=== PATIENT | female | born 1950 | race Caucasian/White ===

== ENCOUNTER → 2016-09-12 | Outpatient (CLI) | payer OTHER | LOC: CIMAGING 10:11 | DX: Z12.31 Encounter for screening mammogram for malignant neoplasm of breast (principal) | CPT/HCPCS: G0202 ==

== ENCOUNTER → 2017-08-25 | Outpatient (CLI) | payer OTHER, MEDICARE | LOC: BMCIMAGING 13:04 | PROVIDERS: ATTEND Obstetrics & Gynecology | DX: Z13.820 Encounter for screening for osteoporosis (principal); M85.89 Other specified disorders of bone density and structure, multiple sites; N95.0 Postmenopausal bleeding; D25.9 Leiomyoma of uterus, unspecified; R93.8 Abnormal findings on diagnostic imaging of other specified body structures; N83.202 Unspecified ovarian cyst, left side; N94.89 Other specified conditions associated with female genital organs and menstrual cycle; Z79.890 Hormone replacement therapy; Z79.899 Other long term (current) drug therapy; Z87.42 Personal history of other diseases of the female genital tract; Z78.0 Asymptomatic menopausal state ==

== ENCOUNTER → 2018-01-16 | Outpatient (CLI) | payer OTHER, MEDICARE | LOC: CIMAGING 15:03 | PROVIDERS: ATTEND Obstetrics & Gynecology | DX: D25.9 Leiomyoma of uterus, unspecified (principal); N85.8 Other specified noninflammatory disorders of uterus; I86.2 Pelvic varices | CPT/HCPCS: 76856-PO ==

== ENCOUNTER → 2018-06-23 | Outpatient (CLI) | payer OTHER, MEDICARE | LOC: CIMAGING 13:32 | PROVIDERS: ATTEND Obstetrics & Gynecology | DX: R92.0 Mammographic microcalcification found on diagnostic imaging of breast (principal) ==

== ENCOUNTER 2018-07-28 09:32 | Inpatient (IN) | payer OTHER, MEDICARE ==
[2018-07-28] MEDS ORDERED: ACETAMINOPHEN 500 MG TAB PO ONE (09:46)
[2018-07-28] MEDS ORDERED: ceFAZolin 2 GM/DEXTROSE 100 ML IV ONE (09:46)
[2018-07-28] MEDS ORDERED: GABAPENTIN 300 MG CAP PO ONE (09:46)
[2018-07-28] MEDS ORDERED: morphINE SR 15 MG TAB PO ONE (09:46)
[2018-07-28] MEDS ORDERED: LR 1,000 ML IV ONE (09:48)
[2018-07-28] MEDS ORDERED: LIDOCAINE 1% 2 ML INJ ONE (10:24)
[2018-07-28] MEDS ORDERED: SURGIFLO MATRIX KIT WITH THROMBIN 8 ML TP ONE (10:51)
[2018-07-28] MEDS ORDERED: BUPIVACAINE/EPI 0.25% 30 ML SDV ONE (10:51)
[2018-07-28] MEDS ORDERED: BACITRACIN 50,000 UNITS/10 ML SYR IRR ONE (10:51)
[2018-07-28] MEDS ORDERED: CHLORHEXIDINE GLUC HIBICLENS 118 ML BTL TP ONE (10:51)
[2018-07-28] MEDS ORDERED: THROMBIN (BOVINE) 20,000 UNIT VIAL TP ONE (10:51)
--- NOTE | 2018-07-28 11:03 | PDHPUP ---
History & Physical Update H&P update statement: This history and physical update is based on an assessment of the patient which was completed after admission or registration (within 24 hours), but prior to the surgery/procedure. H&P update: H&P reviewed & patient examined, no change in patient's condition since H&P completed (Consents signed and site marked. All questions signed.)
[2018-07-28] MEDS ORDERED: MIDAZOLAM 2 MG/2 ML VIAL IVP ONE (11:27)
--- NOTE | 2018-07-28 11:28 | PDANEPAE ---
ANE Past Medical History - Cardiovascular History Hx Hypertension: No Hx Arrhythmias: Yes Hx Chest Pain: No Hx Coronary Artery / Peripheral Vascular Disease: No Hx CHF / Valvular Disease: No Hx Palpitations: No Cardiovascular History Comment: heart murmur - Pulmonary History Hx COPD: No Hx Asthma/Reactive Airway Disease: No Hx Recent Upper Respiratory Infection: No Hx Oxygen in Use at Home: No Hx Sleep Apnea: No Sleep Apnea Screening Result - Last Documented: Negative - Neurologic History Hx Cerebrovascular Accident: No Hx Seizures: No Hx Dementia: No Neurologic History Comment: hx of prp injections for back pain. numbness and tingling to right leg and foot currently. left leg weakness/ "fatigues easily" . migraines on occasion - Endocrine History Hx Diabetes: No Endocrine History Comment: hypothyroidism - Renal History Hx Renal Disorders: Yes Renal History Comment: stress incontinence - Liver History Hx Hepatic Disorders: No - Neurological & Psychiatric Hx Hx Neurological and Psychiatric Disorders: No - Cancer History Hx Cancer: Yes Cancer History Comment: cancerous mole removed - Congenital Disorder History Hx Congenital Disorders: No - GI History Hx Gastrointestinal Disorders: No - Other Health History Other Health History: wears glasses - Chronic Pain History Chronic Pain: Yes (back, nerve pain) - Surgical History Prior Surgeries: wisdom teeth removed ANE Review of Systems Review of Systems: - Exercise capacity METS (RN): 4 METS ANE Patient History - Allergies Allergies/Adverse Reactions: No Known Allergies Allergy (Verified 07/15/18 12:38) - Home Medications Home Medications: Acetaminophen [Tylenol ES 500 mg (*)] 500 mg PO BID PRN 07/14/18 [Last Taken ] Ascorbic Acid [Vitamin C 500 mg (*)] 1,000 mg PO DAILY 07/14/18 [Last Taken ] Cholecalciferol Vit D3 [Vitamin D3 (*)] 5,000 units PO DAILY 07/14/18 [Last Taken 07/21/18] Estradiol [Estradiol 1 MG (*)] 2 mg PO HS 07/14/18 [Last Taken 07/27/18] Gabapentin [Neurontin 100 MG (*)] 100 - 200 mg PO HS 07/14/18 [Last Taken ] Herbals/Supplements -Info Only 1 ea PO DAILY 07/14/18 [Last Taken Unknown] Levothyroxine [Synthroid 75 mcg (*)] 75 mcg PO DAILY06 07/14/18 [Last Taken 06/16] Liothyronine Sodium [Cytomel 5 mcg (*)] 10 mcg PO DAILY 07/14/18 [Last Taken 06/16] Multivitamins [Multivitamin (*)] 1 each PO DAILY 07/14/18 [Last Taken 07/21/18] Hulett-3 Fatty Acids [Fish Oil 1000 mg (*)] 2,000 mg PO DAILY 07/14/18 [Last Taken 07/21/18] Progesterone, Micronized [Progesterone] 200 mg PO HS 07/14/18 [Last Taken ] Vitamin B Complex [Vitamin B Complex (OTC)] 1 each PO DAILY 07/14/18 [Last Taken 07/21/18] - NPO status NPO Since - Liquids (Date): 07/28/18 NPO Since - Liquids (Time): 06:30 NPO Since - Solids (Date): 07/27/18 NPO Since - Solids (Time): 19:00 - Smoking Hx Smoking Status: Never smoked - Family Anes Hx Family Hx Anesthesia Complications: none ANE Labs/Vital Signs - Vital Signs Blood Pressure: 116/83 Heart Rate: 69 Respiratory Rate: 20 O2 Sat (%): 97 Height: 160.02 cm Weight: 56.699 kg ANE Physical Exam - Airway Neck exam: FROM Mallampati Score: Class 2 Mouth exam: normal dental/mouth exam - Pulmonary Pulmonary: no respiratory distress - Cardiovascular Cardiovascular: regular rate and rhythym - ASA Status ASA Status: II ANE Anesthesia Plan Anesthesia Plan: general endotracheal anesthesia (possible a-line)
[2018-07-28] MEDS ORDERED: PROPOFOL/EMULSION 500 MG/50 ML BOTTLE IV ONE ×2 (11:31→12:34)
[2018-07-28] MEDS ORDERED: BISACODYL 10 MG SUPP PR PRN (11:59)
[2018-07-28] MEDS ORDERED: diphenhydrAMINE 25 MG CAP PO PRN (11:59)
[2018-07-28] MEDS ORDERED: LACTULOSE 20 GM/30 ML UDCUP PO PRN (11:59)
[2018-07-28] MEDS ORDERED: ONDANSETRON 4 MG/2 ML VIAL IVP PRN ×3 (11:59→16:44)
[2018-07-28] MEDS ORDERED: POLYETHYLENE GLYCOL 3350 17 GM PKT PO PRN (11:59)
[2018-07-28] MEDS ORDERED: ONDANSETRON DISINTEGRATING 4 MG TAB PO PRN (11:59)
[2018-07-28] MEDS ORDERED: MAGNESIUM HYDROXIDE 30 ML UDCUP PO PRN (11:59)
[2018-07-28] MEDS ORDERED: NS 1,000 ML IV SCH (12:00)
[2018-07-28] MEDS ORDERED: fentaNYL 100 MCG/2 ML INJ IVP PRN ×2 (13:36→16:44)
[2018-07-28] MEDS ORDERED: ALBUTEROL 3 ML DEYVIAL IH PRN ×2 (13:36→16:44)
[2018-07-28] MEDS ORDERED: NALOXONE HCL 0.4 MG/ML INJ IVP PRN ×2 (13:36→16:44)
[2018-07-28] MEDS ORDERED: PROPOFOL 200 MG/20 ML VIAL ONE (15:32)
--- NOTE | 2018-07-28 16:40 | POSTOPPROG ---
Post Op Note Date of Operation: 07/28/18 Surgeon: Pierce Brennan Ski Edge Painter: Frances Vyas NP Anesthesiologist: Dr Mcqueen Anesthesia: GET(General Endotracheal) Pre-op Diagnosis: Thoracic stenosis Procedure: T9-10, T10-11 TLIF with PSF T9-11 Inf/Abcess present in the surg proc area at time of surgery?: No Depth: Deep Incisional (Fascial) EBL: 50-100 Total fluids administered: see anesthesia Complications: none Bowel Protocol: N/A Clean Closure Performed: N/A Drains: Wolfgang Alonso Date of Surgery: 07/28/18 Post Op Day: 0 Assessment/Plan: Assessment: 67 yr old female s/p T9-10, T10-11 laminectomy, T9-10, T10-11 interbody grafts with PSF T9-11 Plan: -Admit Med surg -PT/OT -Post op xrays in am -Jake brace when oob. Patient has brace -ETIENNE to bulb suction -Pain management -Please call neurosurgery with questions/concerns Subjective: waking up in pacu Objective: waking up in pacu no facial droop MAEx4 Incision/dressing CDI ETIENNE patent Appropriate Neuro Check Frequency Ordered: Yes
[2018-07-28] MEDS ORDERED: ACETAMINOPHEN 500 MG TAB PO PRN (16:44)
--- NOTE | 2018-07-28 16:45 | POSTANESTH ---
Post Anesthetic Evaluation Cardiovascular Status: Similar to Pre-Op Cond Respiratory Status: Similar to Pre-op Cond. Level of Consciousness/Mental Status: Mildly Sleepy, Arousable Pain Control: Adequate, Prn Tx Ordered Nausea/Vomiting Control: Adequate, Prn Tx Ordered Complications Possibly Related to Anesthesia: None Noted
--- NOTE | 2018-07-28 16:46 | PDMN ---
Medical Necessity Medical necessity: Mc[facility] IP only surgery; cpt 84681 Arthrodesis
[2018-07-28] MEDS ORDERED: METHOCARBAMOL 750 MG TAB ONE (17:44)
[2018-07-28] MEDS ORDERED: ACETAMINOPHEN 325 MG TAB ONE (17:44)
[2018-07-28] MEDS ORDERED: ACETAMINOPHEN 500 MG TAB ONE (17:46)
[2018-07-28] MEDS: METHOCARBAMOL 750 MG TAB PO PRN (17:49)
[2018-07-28] MEDS: ACETAMINOPHEN 500 MG TAB PO SCH ×2 (18:30→21:47)
[2018-07-28] MEDS: SENNOSIDES/DOCUSATE SODIUM TAB PO SCH (19:59)
[2018-07-28] MEDS: PROGESTERONE,MICR 100 MG CAP PO SCH (20:00)
[2018-07-28] MEDS: FAMOTIDINE 20 MG TAB PO SCH (20:00)
[2018-07-28] MEDS: GABAPENTIN 100 MG CAP PO SCH (20:00)
[2018-07-28] MEDS: ESTRADIOL 1 MG TAB PO SCH (20:01)
[2018-07-28] MEDS: ceFAZolin 2 GM/DEXTROSE 100 ML IV SCH (20:04)
[2018-07-28] MEDS ORDERED: GABAPENTIN 100 MG CAP PO SCH (21:00)
--- NOTE | 2018-07-28 21:01 | GOP ---
[f rep st] OPERATIVE REPORT DATE OF OPERATION: 07/28/2018 SURGEON: Pierce Brennan MD TALENT DEVELOPMENT COORDINATOR: Frances Vyas NP. ANESTHESIA: General. PREOPERATIVE DIAGNOSIS: 1. Severe spinal cord compression T9 through T11 with spinal cord myelopathy. 2. Back pain. POSTOPERATIVE DIAGNOSIS: 1. Severe spinal cord compression T9 through T11 with spinal cord myelopathy. 2. Back pain. PROCEDURE PERFORMED: 1. Posterior arthrodesis with approach to T9, T10, and T11. 2. Posterolateral fusion with bilateral pedicle screw placement T9, T10, and T11 from the LiveBid Solera 4.75 system. 3. Posterolateral fusion on the right between T9 and T11 with morselized autograft and allograft. 4. Decompressive laminectomy with bilateral medial facetectomies T9-T10 and T10 -T11. 5. Left-sided T9-T10 facetectomy, diskectomy, and interbody fusion using a 6 x 22 mm titanium coated PEEK cage filled with morselized autograft and allograft. 6. Left-sided T10-T11 facetectomy, diskectomy, and interbody fusion using a 6 x 22 mm titanium coated PEEK cage filled with morselized autograft and allograft. 7. Use of intraoperative 3D stealth navigation. 8. Use of intraoperative fluoroscopy, less than 1 hour physician time. 9. Use of neuromonitoring. 10. Use of the operating microscope. FINDINGS: per imaging SPECIMENS: None. ESTIMATED BLOOD LOSS: 125 mL. INDICATIONS: The patient is a very pleasant, 67-year-old woman who unfortunately has been suffering from lower extremity radiculopathy and progressive weakness. She had evidence of a grade 1/grade 2 spondylolisthesis of L5-S1 and she was originally scheduled for surgery to address this however imaging demonstrated severe spinal cord stenosis at the T10-T11 level with spinal cord signal changes. The patient was found to be more myelopathic on examination in her legs. After discussion of risks, benefits, and alternatives , and after failing nonoperative intervention, we decided to proceed forth with surgery as described above. We opted to wait on her lumbar surgery until she was recovered from this surgery. DESCRIPTION OF PROCEDURE: Patient was brought to the operating theater and underwent general endotracheal anesthesia without complications. She had Venodynes, ADELITA hose, and appropriate lines placed by Anesthesia. We maintained her MAPs above 80-85 the entire surgery, even through the spinal decompression. She was flipped prone onto the Wolfgang table and all bony processes were inspected and padded. The lower thoracic area was prepped and draped in usual sterile surgical fashion. A time-out was completed per protocol and the patient received antibiotics within 1 hour of incision. Using lateral fluoroscopy and a spinal needle, we then countered our way using live fluoroscopic images to the T9 through T11 levels. This was marked in the midline. The incision was infiltrated with Marcaine with epinephrine. The incision was taken down with the scalpel blade. Using monopolar, the incision was then taken down the midline through the lumbodorsal fascia and subperiosteal dissection carried out to the transverse processes of T9, T10, and T11. Deep retractors were placed to maintain our exposure. We attached the 3D Stealth navigation clamp to the spinous process of T11 and completed a 3D Stealth navigation spin. Using 3D Stealth navigation, we placed the commercial airline pilot holes for the bilateral pedicle screws in the T9, T10, and T11. All holes were manually palpated with no evidence of any cortical breaches. We then tapped and placed 5.5 x 40 mm screws bilaterally into T9, T10, and T11 from the LiveBid Solera 4.75 system. Another 3D Stealth navigation spin demonstrated good placement of the hardware. At this point, the microscope was brought into the field to assist with microscopic dissection and maintain illumination and magnification. Using a combination of bur tip on the drill bit, Kerrison punches, and Leksell rongeur, we completed a decompressive laminectomy with bilateral medial facetectomies T9- T10, T10-T11. We then completed aggressive facetectomies on the left side between T9-T10 and T10-T11. We distracted the interspace of T9-T10, completed a left-sided diskectomy and prepared the cartilaginous endplates. We measured interbody space and placed a 6 x 22 mm titanium coated PEEK cage filled with morselized autograft and allograft anteriorly and toward the midline. We packed additional morcellized autograft in the disk space for the interbody fusion. We then let down distraction and moved down to the T10-T11 level and completed a left-sided T10-T11 diskectomy and prepared the cartilaginous endplates. We measured the interbody space and placed a 6 x 22 mm titanium coated PEEK cage filled with morselized autograft and allograft anteriorly and toward the midline. We packed additional morcellized autograft in the disk space for the interbody fusion. We let down the distraction and decorticated the bone in the right side between T9 and T11. We placed 2 rods into the heads of the screws between T9 and T11 and secured them down with cap screws which were then tightened per pipe organ tuner and repairer's setting. We irrigated the wound copiously with bacitracin irrigation. We placed morselized autograft and allograft from the right side between T9 and T11 for the posterolateral fusion. A drain was left in subfascial space. Wound was then closed in multiple layers, including Vicryl sutures in deep layers and Dermabond for the skin. The patient's wounds were dressed sterilely. She was then flipped supine onto the transfer cart. She was awakened, extubated, taken to the recovery room in stable condition. There were no complications and no noted changes on neuromonitoring throughout the procedure. COMPLICATIONS: None. /[id number]/MODL MTDD
[2018-07-29] MEDS: ceFAZolin 2 GM/DEXTROSE 100 ML IV SCH (01:57)
[2018-07-29 05:38] LABS: PLATELET COUNT 231 10^3/uL (150-400)
[2018-07-29] MEDS: LEVOTHYROXINE 75 MCG TAB PO SCH (05:58)
[2018-07-29] MEDS: METHOCARBAMOL 750 MG TAB PO PRN ×4 (06:11→22:26)
[2018-07-29] MEDS: oxyCODONE IR 5 MG TAB PO PRN ×5 (06:11→22:26)
[2018-07-29] MEDS: ACETAMINOPHEN 500 MG TAB PO SCH ×3 (06:33→22:25)
[2018-07-29] MEDS: SENNOSIDES/DOCUSATE SODIUM TAB PO SCH ×2 (07:47→20:17)
[2018-07-29] MEDS: FAMOTIDINE 20 MG TAB PO SCH ×2 (07:48→20:18)
[2018-07-29] MEDS: LIOTHYRONINE SODIUM 5 MCG TAB PO SCH (07:48)
[2018-07-29] MEDS ORDERED: NS 500 ML IV ONE (07:56)
--- NOTE | 2018-07-29 07:56 | SOAPPROG ---
SOAP Progress Note Assessment/Plan: Assessment: POD #1 s/p T9-11 fusion Doing well. BP a bit low but asymptomatic Plan: Jake brace when OOB Follow BP. Will bolus with 500ml NS Continue ETIENNE drain PT/OT xrays when OOB 07/29/18 07:53 07/29/18 07:55 Subjective: Lying in bed, comfortable. Thinks some of the decreased sensation in her right leg is better but has new areas medially in both legs Denies motor changes. Objective: Vital Signs Temp Pulse Resp BP Pulse Ox 37.0 C 60 17 97/61 L 96 07/29/18 07:28 07/29/18 07:28 07/29/18 07:28 07/29/18 07:28 07/29/18 07:28 Laboratory Results 07/29/18 05:02 07/29/18 05:02 07/28/18 07/29/18 07/30/18 05:59 05:59 05:59 Intake Total 1800 1383 Output Total 1490 50 Balance 310 1333 Neuro HIDALGO, sens +LT FC x 4 Dressing: Dry ETIENNE: 50 ml this AM ICD10 Worksheet Patient Problems: Problems Problem Status Onset Thoracic spinal stenosis Acute - ICD10 Problem Qualifiers (1) Thoracic spinal stenosis
--- NOTE | 2018-07-29 14:13 | ASMTCMCOM ---
CM Note CM Note Notes: Pt had planned back surgery, resides alone. Pt dghtr available to help pt her recovery. PT rec home. Pt was pre-arranged with [facility] and after meeting with Monica at [facility] pt decides she does want HC PT. [facility] has protocol with MD office so no HC order required at d/c. D/c plan of care: Home with dghtr support and [facility] Date Signed: 07/29/2018 02:13 PM Electronically Signed By:SANTY Alejandro
[2018-07-29] MEDS: PROGESTERONE,MICR 100 MG CAP PO SCH (20:17)
[2018-07-29] MEDS: GABAPENTIN 100 MG CAP PO SCH (20:18)
[2018-07-29] MEDS: ESTRADIOL 1 MG TAB PO SCH (20:18)
[2018-07-30] MEDS: oxyCODONE IR 5 MG TAB PO PRN ×3 (04:49→14:25)
[2018-07-30] MEDS: ACETAMINOPHEN 500 MG TAB PO SCH ×2 (06:32→14:25)
[2018-07-30] MEDS: LEVOTHYROXINE 75 MCG TAB PO SCH (06:32)
--- NOTE | 2018-07-30 08:07 | NEUSURGPN ---
Date of Surgery: 07/28/18 Post Op Day: 2 Assessment/Plan: Assessment: 67 yr old female s/p T9-10, T10-11 laminectomy, T9-10, T10-11 interbody grafts with PSF T9-11 POD#2 Plan: -PT/OT -Post op xrays stable hardware placement -Rapelje brace when oob -ETIENNE to bulb suction, will remove drain at 1200 -Patient doing well with pain control and therapies, ok to discharge home this afternoon -Patient discussed with Dr Brennan -Please call neurosurgery with questions/concerns Subjective: Doing well, pain controlled Objective: AxOx4 MAEx4 5/5 BUE, BLE Dressing/incision CDI ETIENNE patent Neuro Check Frequency: per routine Urinary Catheter in Place: No - Physician Discussed Patient with : Mika Neurosurgery Physical Exam - Vitals, I&O, Labs I and O 07/29/18 07/30/18 07/31/18 05:59 05:59 05:59 Intake Total 1800 3233 Output Total 1490 5465 Balance 310 -2232 Weight 56.699 kg Intake: Oral (ml) 50 1850 IV Intake (ml) 1750 883 IV Infused (ml) 500 Ns 500 ml @ 1500 mls/hr 500 IV ONCE ONE Rx#: [id number] Output: Urine (ml) 1300 5200 Catheter 1300 2300 Toilet 2900 ETIENNE Drain Output (ml) 190 265 #1 Back Wolfgang Alonso 190 265 Other: Number of Voids Catheter 1 2 Toilet 1 Vital Signs Temp Pulse Resp BP Pulse Ox 36.7 C 64 16 106/58 L 96 07/30/18 04:00 07/30/18 04:00 07/30/18 04:00 07/30/18 04:00 07/30/18 04:00 Laboratory Results 07/29/18 05:02 07/29/18 05:02 ICD10 Worksheet Patient Problems: Problems Problem Status Onset Thoracic spinal stenosis Acute
[2018-07-30 08:11] VITALS: BP 119/64
[2018-07-30] MEDS: METHOCARBAMOL 750 MG TAB PO PRN ×2 (08:12→14:25)
[2018-07-30] MEDS: SENNOSIDES/DOCUSATE SODIUM TAB PO SCH (08:12)
[2018-07-30] MEDS: FAMOTIDINE 20 MG TAB PO SCH (08:12)
[2018-07-30] MEDS: LIOTHYRONINE SODIUM 5 MCG TAB PO SCH (08:12)
[2018-07-30] MEDS ORDERED: ENOXAPARIN 40 MG/0.4 ML SYR SC SCH (09:00)
--- NOTE | 2018-07-30 11:31 | ASMTLACE ---
LACE Length of stay for Answers: 3 days current admission Acuity / Level of Answers: Yes Care: Did the patient have an inpatient admission? Comorbidities - select Answers: Opioid dependence all that apply / Chronic pain Other Notes: Hypothyroid # of Emergency department Answers: 0 visits in the last 6 months Score: 11 Date Signed: 07/30/2018 11:30 AM Electronically Signed By:SANTY Alejandro
--- NOTE | 2018-07-30 11:38 | ASMTCMCOM ---
CM Note CM Note Notes: Pt medically stable for d/c with [facility]. No orders required since [facility] has protocol with Monica with [facility] met with pt yesterday and pt decided she wants HC PT. Date Signed: 07/30/2018 11:38 AM Electronically Signed By:SANTY Alejandro
--- NOTE | 2018-07-30 12:06 | PDIAF ---
- Diagnosis Diagnosis: S/P thoraic fusion Code Status: Full Code - Medication Management Discharge Medications: electronically signed and located in the Home Medication List. - Orders Services needed: Home Care, Physical Therapy, Occupational Therapy Home Care Face to Face: I certify that this patient was under my care and that I had the required [id number] encounter meeting the encounter requirements on the discharge day. My findings support the fact that the patient is homebound as defined in Home Care Face to Face Continued: CMS Chapter 7 Medicare Benefits Manual 30.1.1 , The condition of the patient is such that there exists a normal inability to leave home and consequently, leaving home would require a considerable and taxing effort. Diet Recommendation: no restrictions on diet Diet Texture: Regular Texture Diet Additional Instructions: Avoid bending and twisting Do no lift greater than 10 pounds Wear brace when out of bed, ok to remove to shower Avoid NSAIDs for 6 months Ok to shower Friday07/31/18 - Follow Up Care Current Providers and Referrals: Pierce Brennan MD [Medical Doctor] - follow up in 2 weeks Domi Head MD [Primary Care Provider] -
== END 2018-07-30 15:56 | disposition home health service (06) | DRG 455 ==
LOC: F3N 09:32
PROVIDERS: ADMIT Neurological Surgery; ATTEND Neurological Surgery
DX: M47.14 Other spondylosis with myelopathy, thoracic region (principal); M43.17 Spondylolisthesis, lumbosacral region; E03.9 Hypothyroidism, unspecified; G43.909 Migraine, unspecified, not intractable, without status migrainosus; N39.3 Stress incontinence (female) (male); Z85.828 Personal history of other malignant neoplasm of skin; R01.1 Cardiac murmur, unspecified
CPT/HCPCS: 97116-GP; 97161-GP; 97165-GO; 97530-GP; 97535-GO; C1713; J0690; J1650; J2250; J2270; J2704